=== PATIENT | male | born 1955 | race African-American/Black ===

== ENCOUNTER 2017-08-31 08:02 | Observation (INO) | payer OTHER ==
[2017-08-31 08:20] VITALS: BMI 37.3
--- NOTE | 2017-08-31 08:26 | PDOC ---
History of Present Illness - General Chief Complaint: Chest Pain Stated Complaint: CHEST PAIN Time Seen by Provider: 08/31/17 08:16 - History of Present Illness Initial Comments: 08/31/17 08:30 Mr. Jarvis is a 62 yo male with a significant past medical history of HTN, gout, and pre DM who presents to the emergency department complaining of chest pain and blood pressure to 180's/110's. He denies any other symptoms. The patient denies shortness of breath, headache and dizziness. Denies fever, chills, nausea, vomit, diarrhea and constipation. Denies dysuria, frequency, urgency and hematuria. Allergies: NKDA Past surgical history: Denies PMD - Roderick Denise Past History - Past Medical History Allergies/Adverse Reactions: Allergies Allergy/AdvReac Type Severity Reaction Status Date / Time No Known Allergies Allergy Verified 08/31/17 08:20 Home Medications: Ambulatory Orders Allopurinol [Zyloprim -] 100 mg PO DAILY #30 tablet 03/11/15 Chlorthalidone 25 mg PO DAILY #30 tablet 03/11/15 Losartan Potassium 100 mg PO DAILY #30 tablet 03/11/15 Metoprolol Tartrate 100 mg PO BID #30 tablet 03/11/15 Anemia: No Asthma: No Cancer: No Cardiac Disorders: No COPD: No CHF: No HTN: Yes Hypercholesterolemia: Yes - Immunization History Immunization Up to Date: Yes - Suicide/Smoking/Psychosocial Hx Smoking History: Current some day smoker Have you smoked in the past 12 months: No Number of Cigarettes Smoked Daily: 1 If you are a former smoker, when did you quit?: 5 MONTHS Cigars Per Day: 1 Hx Alcohol Use: No Drug/Substance Use Hx: No Substance Use Type: None Hx Substance Use Treatment: No Review of Systems - Review of Systems Comments:: 08/31/17 08:30 GENERAL/CONSTITUTIONAL: No fever or chills. No weakness. HEAD, EYES, EARS, NOSE AND THROAT: No change in vision. No ear pain or discharge. No sore throat. CARDIOVASCULAR: +Chest pain earlier this morning. No shortness of breath RESPIRATORY: No cough, wheezing, or hemoptysis. GASTROINTESTINAL: No nausea, vomiting, diarrhea or constipation. GENITOURINARY: No dysuria, frequency, or change in urination. MUSCULOSKELETAL: No joint or muscle swelling or pain. No neck or back pain. SKIN: No rash NEUROLOGIC: No headache, vertigo, loss of consciousness, or change in strength/ sensation. ENDOCRINE: No increased thirst. No abnormal weight change HEMATOLOGIC/LYMPHATIC: No anemia, easy bleeding, or history of blood clots. ALLERGIC/IMMUNOLOGIC: No hives or skin allergy. *Physical Exam - Physical Exam Comments: 08/31/17 08:30 GENERAL: Awake, alert, and fully oriented, in no acute distress HEAD: No signs of trauma, normocephalic, atraumatic EYES: PERRLA, EOMI, sclera anicteric, conjunctiva clear ENT: Auricles normal inspection, hearing grossly normal, nares patent, oropharynx clear without exudates. Moist mucosa NECK: Normal ROM, supple, no lymphadenopathy, JVD, or masses LUNGS: No distress, speaks full sentences, clear to auscultation bilaterally HEART: Regular rate and rhythm, normal S1 and S2, no murmurs, rubs or gallops, peripheral pulses normal and equal bilaterally. ABDOMEN: Soft, nontender, normoactive bowel sounds. No guarding, no rebound. No masses EXTREMITIES: Normal inspection, Normal range of motion, no edema. No clubbing or cyanosis. NEUROLOGICAL: Cranial nerves II through XII grossly intact. Normal speech, normal gait, no focal sensorimotor deficits SKIN: Warm, Dry, normal turgor, no rashes or lesions noted. ED Treatment Course - LABORATORY CBC & Chemistry Diagram: 08/31/17 08:25 08/31/17 16:10 *DC/Admit/Observation/Transfer Diagnosis at time of Disposition: Chest pain Qualifiers: Chest pain type: unspecified Qualified Code(s): R07.9 - Chest pain, unspecified ; R07.9 - Chest pain, unspecified - Discharge Dispostion Condition at time of disposition: Stable
[2017-08-31] MEDS ORDERED: ASPIRIN 325 MG TABLET PO ONE (08:37)
[2017-08-31] MEDS ORDERED: ASPIRIN 325 MG TABLET ONE (08:43)
[2017-08-31 08:51] LABS: EOSINOPHIL 1.7 % (0-4.5); MCH 25.6 pg (25.7-33.7); MCHC 32.8 g/dl (32.0-35.9); MEAN PLT VOLUME 7.7 fl (7.5-11.1); NEUTROPHILS 66.3 % (42.8-82.8); PLATELET COUNT 268 K/MM3 (134-434); RDW 14.6 % (11.9-15.9); WHITE BLOOD COUNT 9.5 K/mm3 (4.0-10.0)
[2017-08-31 09:03] LABS: ALBUMIN 3.9 g/dl (3.4-5.0); ANION GAP 6 (8-16); CALCIUM 8.8 mg/dL (8.5-10.1); CO2 33 mmol/L (21-32); GLUCOSE,RANDOM 126 mg/dL (74-106)
[2017-08-31 09:06] LABS: BILIRUBIN,TOTAL 0.7 mg/dL (0.2-1.0); CREATININE 1.4 mg/dL (0.7-1.3); SGOT/AST 28 U/L (15-37); SGPT/ALT 49 U/L (12-78); TOT PROT 7.5 g/dl (6.4-8.2)
[2017-08-31 09:09] LABS: ALK PHOS 76 U/L (45-117); CPK 292 IU/L (39-308); TROPONIN I < 0.02 ng/ml (0.00-0.05)
[2017-08-31] MEDS ORDERED: SODIUM CHLORIDE 1,000 ML IV STA (09:17)
[2017-08-31] MEDS ORDERED: POTASSIUM CHLORIDE TABS 20 MEQ TABLET.ER (FP) PO ONE ×3 (09:19→18:45)
--- NOTE | 2017-08-31 09:58 | PDOC ---
Attending Attestation - Resident Resident Name: SundaybretreySekouEyal - ED Attending Attestation I have performed the following: I have examined & evaluated the patient, The case was reviewed & discussed with the resident, I agree w/resident's findings & plan, Exceptions are as noted - Medical Decision Making 08/31/17 09:58 A portion of this note was written by my scribe, under my supervision. Vital Signs Temp Pulse Resp BP Pulse Ox 98.8 F 57 L 18 138/94 100 08/31/17 09:03 08/31/17 08:18 08/31/17 08:18 08/31/17 09:06 08/31/17 08:18 62-year-old male with history of hypertension presents to the emergency department chest pain since yesterday. According to the patient, patient reports atypical chest pain with gassy-like sensation yesterday that lasted several seconds and another left-sided episode that resolved earlier this morning. Denies short of breath, exertional component. Denies diaphoresis or vomiting. Does report some family history of cardiac disease with his father having an HI in his 80s. Given his age and history of hypertension, we'll rule out myocardial function. Patient is likely a good candidate for two troponins and for rapid outpatient echocardiogram and stress test. EKG is normal and initial troponin is negative. We'll need to touch base with the carpentry specialist comfortable with the plan. It carpentry specialist is okay with the plan, we'll have the patient discharged with rapid outpatient follow-up. <Mio Sutherland - Last Filed: 08/31/17 09:58> - HPI HPI: 08/31/17 10:08 62 yr old male, with significant past medical history of HTN, gout, who presents to the emergency room complaining of intermittent chest pain that started yesterday afternoon. The chest pain is tight, feels gassy, non radiating and lasts for about 30 seconds. The first episode of chest pain occurred yesterday afternoon, but subsided when he sat down and relaxed. He took metoprolol and losartan and went to sleep. The chest pain returned and was worse around 4am this morning. He does not have chest pain at this time. He also complains of constant left sided pain, that feels like air is trapped and is separate from the chest pain, which he has experienced for 2 years. Denies cough, SOB, palpitations. Denies fever, chills, nausea, vomiting. Allergies: NKDA No PCP. 08/31/17 11:15 - Physicial Exam PE: 08/31/17 10:18 GENERAL: Awake, alert, and fully oriented, in no acute distress HEAD: No signs of trauma EYES: PERRLA, EOMI, sclera anicteric, conjunctiva clear ENT: Auricles normal inspection, hearing grossly normal, nares patent, oropharynx clear without exudates. Moist mucosa NECK: Normal ROM, supple, no lymphadenopathy, JVD, or masses LUNGS: Breath sounds equal, clear to auscultation bilaterally. No wheezes, and no crackles HEART: Regular rate and rhythm, normal S1 and S2, no murmurs, rubs or gallops ABDOMEN: Soft, nontender, normoactive bowel sounds. No guarding, no rebound. No masses EXTREMITIES: Normal range of motion, no edema. No clubbing or cyanosis. No cords, erythema, or tenderness NEUROLOGICAL: Cranial nerves II through XII grossly intact. Normal speech, normal gait SKIN: Warm, Dry, normal turgor, no rashes or lesions noted. <Charisma Greene - Last Filed: 08/31/17 11:15> Heart Score/ECG Review - History History: Slightly suspicious - Electrocardiogram EKG: Normal - Age Age: 45-65 - Risk Factors Risk Factors Heart Score: Yes Hx Hypertension Based on the list above the patient has:: 1-2 risk factors - Troponin Troponin: </= normal limit - Score Heart Score - Total: 2 #1 ECG reviewed & interpreted by me at: 08:10 08/31/17 09:57 NSR 56 TWI III, no std/skyla, normal axis, normal intervals, QTC 426 msec <Mio Sutherland - Last Filed: 08/31/17 09:58>
[2017-08-31] MEDS ORDERED: RANITIDINE HCL 150 MG TABLET (FP) PO ONE ×2 (10:28→10:30)
[2017-08-31] MEDS ORDERED: RANITIDINE HCL 150 MG TABLET (FP) ONE (10:30)
--- NOTE | 2017-08-31 11:15 | EKG ---
Test Reason : Blood Pressure : / mmHG Vent. Rate : 056 BPM Atrial Rate : 056 BPM P-R Int : 178 ms QRS Dur : 086 ms QT Int : 442 ms P-R-T Axes : 060 007 016 degrees QTc Int : 426 ms SINUS BRADYCARDIA OTHERWISE NORMAL ECG WHEN COMPARED WITH ECG OF 09-MAR-2015 09:14, ST NO LONGER DEPRESSED IN INFERIOR LEADS T WAVE INVERSION NO LONGER EVIDENT IN LATERAL LEADS U WAVES IN SELECTED LEADS CLINICAL CORRELATION AND REPEAT INDICATED Confirmed by KAYY WEINSTEIN MD ([id number]) on 08/31/2017 11:15:34 AM Referred By: Confirmed By:KAYY WEINSTEIN MD
[2017-08-31] MEDS ORDERED: hydrALAZINE HCL 10 MG TABLET PO ONE ×2 (12:10→18:45)
[2017-08-31] MEDS ORDERED: hydrALAZINE HCL 25 MG TABLET (FP) ONE (12:17)
--- NOTE | 2017-08-31 12:25 | CON.CARD ---
Consult Consult Specialty:: cardiology Reason for Consultation:: chest pain; uncontrolled HTN - History of Present Illness Chief Complaint: Pt is presently asymptomatic. History of Present Illness: Mr. Jarvis is a 62 yo black male (. [place]), with a significant past medical history of HTN, DM, obesity, gout, bronchial asthma, (quit cigarettes in 2016, after smoking "a few cigarettes a day" since age 12), bilateral adrenal adenoma (2015 CT), fatty liver, who presents to the emergency department complaining of chest pain and blood pressure to 180's/110's. He denies any other symptoms. Pt stopped taking amlodipine a week ago, when he read it might cause chest pain. Pt has had left- sided chest pain radiating to left arm, occurring at rest , for years (reports admission to [facility] for these symptoms in 2014-->stress test) , but this is the first time he had central chest pain that occurred with exertion (walking), was tight and 8/10 in intensity, and lasted about 30 seconds ; it recurred today at 4 am. The patient denies shortness of breath, headache and dizziness. Denies fever, chills, nausea, vomit, diarrhea and constipation. Denies dysuria, frequency, urgency and hematuria. Allergies: NKDA Past surgical history: Denies Has an occasional alcoholic drink; never was a heavy drinker. Relatively sedentary lifestyle since retiring a year ago. PMD - Roderick Denise ([employer]). - History Source History Provided By: Patient, Family Member, Medical Record Limitations to Obtaining History: No Limitations - Past Medical History Cardio/Vascular: Yes: Aortic Insufficiency, HTN, Murmur (hx aortic regurgitation ). No: AFIB, Aneurysm, Aortic Stenosis, CAD, CHF, Deep Vein Thrombosis, Hyperlipdemia, [place], Mitral Insufficiency, Mitral Stenosis, Pulmonary Hypertension , Other Pulmonary: Yes: Asthma Endocrine: Yes: Diabetes Mellitus - Past Surgical History Past Surgical History: Yes: None - Alcohol/Substance Use Hx Alcohol Use: Yes History of Substance Use: reports: None - Smoking History Smoking history: Former smoker Have you smoked in the past 12 months: No Aproximately how many cigarettes per day: 1 If you are a former smoker, when did you quit?: 2016 - Social History Usual Living Arrangement: With Spouse Place of : Other ([place]) Home Medications - Allergies Allergies/Adverse Reactions: Allergies Allergy/AdvReac Type Severity Reaction Status Date / Time No Known Allergies Allergy Verified 08/31/17 08:20 - Home Medications Home Medications: Ambulatory Orders Allopurinol [Zyloprim -] 100 mg PO DAILY #30 tablet 03/11/15 Chlorthalidone 25 mg PO DAILY #30 tablet 03/11/15 Losartan Potassium 100 mg PO DAILY #30 tablet 03/11/15 Metoprolol Tartrate 100 mg PO BID #30 tablet 03/11/15 Family Disease History - Family Disease History Family History: Denies Review of Systems - Review of Systems Constitutional: reports: No Symptoms Eyes: reports: No Symptoms HENT: reports: No Symptoms Neck: reports: No Symptoms Cardiovascular: reports: Chest Pain Respiratory: reports: Wheezing (rare asthma attacks) Genitourinary: reports: No Symptoms Breasts: reports: No Symptoms Reported Musculoskeletal: reports: No Symptoms Integumentary: reports: No Symptoms Neurological: reports: No Symptoms Endocrine: reports: No Symptoms Hematology/Lymphatic: reports: No Symptoms Psychiatric: reports: No Symptoms - Risk Factors Known Risk Factors: Yes: Age, Diabetes Mellitus, Gender, Hypercholesterolemia, Hypertension, Physical Inactivity, Race, Smoking Vital Signs: Vital Signs Temperature 98.8 F 08/31/17 09:03 Pulse Rate 53 L 08/31/17 10:34 Respiratory Rate 18 08/31/17 10:34 Blood Pressure 152/100 08/31/17 10:34 O2 Sat by Pulse Oximetry (%) 100 08/31/17 10:34 Constitutional: Yes: Anxious (Pt says being in ER and speaking with doctors raises his BP) Eyes: Yes: WNL HENT: Yes: WNL Neck: Yes: WNL Respiratory: Yes: WNL Gastrointestinal: Yes: WNL, Abdomen, Obese Renal/: No: Anuria Cardiovascular: Yes: Bradycardia JVD: No Carotid Bruit: No PMI: Non-Displaced Heart Sounds: Yes: S1, S2, S4 Murmur: Yes: Systolic Murmur, Grade 2 Musculoskeletal: Yes: WNL Extremities: Yes: WNL Edema: No Peripheral Pulses WNL: Yes Integumentary: Yes: WNL Neurological: Yes: WNL Psychiatric: Yes: WNL - Other Data Labs, Other Data: CBC, BMP 08/31/17 08:25 08/31/17 08:25 Troponin, BNP 08/31/17 08:25 Troponin I < 0.02 Troponin, BNP 08/31/17 08:25 Troponin I < 0.02 Abnormal Lab Results 08/31/17 08/31/17 08/31/17 08:25 08:25 12:20 MCV 78.0 L MCH 25.6 L Potassium 3.1 L Carbon Dioxide 33 H Anion Gap 6 L Creatinine 1.4 H D Random Glucose 126 H D Triglycerides 191 H HDL Cholesterol 39 L 08/31/17 16:10 MCV MCH Potassium 3.4 L Carbon Dioxide 33 H Anion Gap 4 L Creatinine Random Glucose 119 H Triglycerides HDL Cholesterol Imaging - Results EKG: Image Reviewed (sinus bradycardia; nonspecific T wave changes) Problem List - Problems (1) Adrenal adenoma Assessment/Plan: bilateral small adrenal adenomas on CT 2014. ?[id number] HTN. Consider MRI to r/o secondary etiology of HTN. Code(s): D35.00 - BENIGN NEOPLASM OF UNSPECIFIED ADRENAL GLAND (2) Bronchial asthma Assessment/Plan: consider discontinuing beta blockers. F/u with retail clerk fot asthma; r/o sleep apnea. Code(s): J45.909 - UNSPECIFIED ASTHMA, UNCOMPLICATED (3) Has smoked cigarettes within prior year Assessment/Plan: pt says he quit entirely. Code(s): Z87.891 - PERSONAL HISTORY OF NICOTINE DEPENDENCE (4) Obesity Assessment/Plan: Pt plans to reduce weight "once I'm sure my heart is OK". F/lipids. Code(s): E66.9 - OBESITY, UNSPECIFIED (5) Diabetes Assessment/Plan: F/u fasting glucose and HGBA1C. Code(s): E11.9 - TYPE 2 DIABETES MELLITUS WITHOUT COMPLICATIONS (6) Hypokalemia Assessment/Plan: ? secondary to cholrtahlidone. Replete K+; f/u Mg2+ as well. Code(s): E87.6 - HYPOKALEMIA (7) Sedentary lifestyle Assessment/Plan: Pt intends to increase exercise after cardiac workup. Code(s): Z91.89 - OTH PERSONAL RISK FACTORS, NOT ELSEWHERE CLASSIFIED (8) Uncontrolled hypertension Assessment/Plan: metoprolol held (bradycardia; hx bronchial asthma). Pt self-d/syed amlodipine a week ago after reading that a side-effect might be chest pain. Continue chlorthalidone, unless continued hypokalemia despite repletion. Restart amlodipine. Continue losartan. Now on hydralazine. Code(s): I10 - ESSENTIAL (PRIMARY) HYPERTENSION (9) NSAID long-term use Assessment/Plan: Pt has been taking Advil "a lot, and for years"; his knees feel better when he takes it. The potential health risks were discussed, including possiblitity of CHF, [place], elevation in BP, renal. Code(s): Z79.1 - HALFWAY (CURRENT) USE OF NON-STEROIDAL NON-INFLAM (NSAID) (10) [place] cardiac risk >20% in next 10 years Assessment/Plan: TNI < 0.02; f/u serially. Pt had stress MIBI 2015: fair exercise capacity; no ischemia. Continued risk factors for CAD that remain poorly controlled. Stress MIBI when BP is stable. Code(s): Z91.89 - OTH PERSONAL RISK FACTORS, NOT ELSEWHERE CLASSIFIED (11) Sleep apnea Assessment/Plan: r/o OSAS; sleep studies, if not done before. Code(s): G47.30 - SLEEP APNEA, UNSPECIFIED (12) Bradycardia on ECG Assessment/Plan: Sinus bradycardia; nonspecific T wave changes. Metoprolol held. F/u TSH. Code(s): R00.1 - BRADYCARDIA, UNSPECIFIED
--- NOTE | 2017-08-31 12:57 | PDOC ---
*Physical Exam - Vital Signs Last Vital Signs Temp Pulse Resp BP Pulse Ox 98.8 F 53 L 18 152/100 100 08/31/17 09:03 08/31/17 10:34 08/31/17 10:34 08/31/17 10:34 08/31/17 10:34 ED Treatment Course - LABORATORY CBC & Chemistry Diagram: 08/31/17 08:25 08/31/17 08:25 - ADDITIONAL ORDERS Additional order review: Laboratory Results 08/31/17 08:25 Sodium 137 Potassium 3.1 L Chloride 98 Carbon Dioxide 33 H Anion Gap 6 L BUN 16 D Creatinine 1.4 H D Creat Clearance w eGFR 51.02 Random Glucose 126 H D Calcium 8.8 Total Bilirubin 0.7 AST 28 D ALT 49 D Alkaline Phosphatase 76 Creatine Kinase 292 Creatine Kinase Index 0.5 CK-MB (CK-2) 1.464 Troponin I < 0.02 Total Protein 7.5 Albumin 3.9 08/31/17 08:25 RBC 5.17 MCV 78.0 L MCHC 32.8 RDW 14.6 D MPV 7.7 Neutrophils % 66.3 Lymphocytes % 24.4 Monocytes % 6.6 Eosinophils % 1.7 Basophils % 1.0 - Medications Given in the ED: ED Medications Discontinued Medications Generic Name Dose Route Start Last Admin Trade Name Freq PRN Reason Stop Dose Admin Aspirin 325 mg 08/31/17 08:37 08/31/17 08:40 Asa - PO 08/31/17 08:38 325 mg ONCE ONE Administration Hydralazine HCl 10 mg 08/31/17 12:10 08/31/17 12:17 Apresoline - PO 08/31/17 12:11 10 mg ONCE ONE Administration Sodium Chloride 1,000 mls @ 1,000 mls/hr 08/31/17 09:17 08/31/17 09:32 Normal Saline - IV 08/31/17 10:16 1,000 mls/hr ASDIR STA Administration Potassium Chloride 40 meq 08/31/17 09:19 08/31/17 09:32 K-Dur - PO 08/31/17 09:20 40 meq ONCE ONE Administration Ranitidine HCl 300 mg 08/31/17 10:28 08/31/17 10:34 Zantac - PO 08/31/17 10:29 Not Given ONCE ONE Ranitidine HCl 150 mg 08/31/17 10:30 08/31/17 10:34 Zantac - PO 08/31/17 10:31 150 mg ONCE ONE Administration Medical Decision Making - Medical Decision Making 08/31/17 12:[address] Hansen. Case discussed with Dr. Adams Accepted to tele observation *DC/Admit/Observation/Transfer Diagnosis at time of Disposition: Chest pain Qualifiers: Chest pain type: unspecified Qualified Code(s): R07.9 - Chest pain, unspecified ; R07.9 - Chest pain, unspecified - Discharge Dispostion Condition at time of disposition: Stable Admit: Yes
[2017-08-31 12:59] LABS: CPK 287 IU/L (39-308)
[2017-08-31 13:00] LABS: TROPONIN I < 0.02 ng/ml (0.00-0.05)
[2017-08-31 13:09] LABS: CHOLESTEROL 165 mg/dL (50-200); MAGNESIUM 1.9 mg/dL (1.8-2.4)
[2017-08-31 13:32] LABS: THYROID STIMULATING HORMONE 0.69 uIU/ml (0.358-3.74)
--- NOTE | 2017-08-31 14:17 | HP ---
Admitting History and Physical - Admission Chief Complaint: chest discomfort History of Present Illness: Mr. Jarvis is a 62 yo male with a significant past medical history of HTN, gout, bronchial asthma( prior smoker ) and pre DM who presents to the emergency department complaining of chest pain and blood pressure to 180's/110's. He denies any other symptoms. The patient denies shortness of breath, headache and dizziness. Denies fever, chills, nausea, vomit, diarrhea and constipation. Denies dysuria, frequency, urgency and hematuria. per patient yesterday when he got back from work he was having this heavy chest discomfort like : air pocket: in left side of chest then he took hay aspirin and pain subsided then he was ok for rest of evening. in the nite around 3:00pm he got up because of same discomfort in chest and left arm cramping feeling he check BP and it was 180's he took his meds and decided to come to ER. in ER BP 161/101 and K 3.1 got hydralazine and potasium as well seen by cardio wants to do stress test in morning currently patient is pain free and siting comfortably History Source: Patient, Medical Record - Past Medical History Cardiovascular: Yes: HTN. No: AFIB, Aneurysm, Aortic Insufficiency, Aortic Stenosis, CAD, CHF, Deep Vein Thrombosis, Hyperlipdemia, [place], Mitral Insufficiency, Mitral Stenosis, Murmur, Pulmonary Hypertension, Other Pulmonary: Yes: Asthma Endocrine: Yes: Diabetes Mellitus - Smoking History Smoking history: Former smoker Have you smoked in the past 12 months: No Aproximately how many cigarettes per day: 1 If you are a former smoker, when did you quit?: 2016 - Alcohol/Substance Use Hx Alcohol Use: Yes Home Medications - Allergies Allergies/Adverse Reactions: Allergies Allergy/AdvReac Type Severity Reaction Status Date / Time No Known Allergies Allergy Verified 08/31/17 08:20 - Home Medications Home Medications: Ambulatory Orders Allopurinol [Zyloprim -] 100 mg PO DAILY #30 tablet 03/11/15 Chlorthalidone 25 mg PO DAILY #30 tablet 03/11/15 Losartan Potassium 100 mg PO DAILY #30 tablet 03/11/15 Metoprolol Tartrate 100 mg PO BID #30 tablet 03/11/15 Review of Systems - Review of Systems Cardiovascular: reports: No Symptoms Respiratory: reports: No Symptoms Gastrointestinal: reports: No Symptoms Physical Examination Vital Signs: Vital Signs Temperature 98.8 F 08/31/17 09:03 Pulse Rate 60 08/31/17 13:16 Respiratory Rate 18 08/31/17 13:16 Blood Pressure 153/100 08/31/17 13:16 O2 Sat by Pulse Oximetry (%) 100 08/31/17 13:16 Constitutional: Yes: Calm Neck: Yes: Trachea Midline Cardiovascular: Yes: Regular Rate and Rhythm, S1, S2 Respiratory: Yes: CTA Bilaterally Gastrointestinal: Yes: Normal Bowel Sounds, Soft, Abdomen, Obese Edema: No Neurological: Yes: Alert, Oriented Imaging - Results EKG: Report Reviewed (sinus bradycardia) Problem List - Problems (1) Chest pain Assessment/Plan: tele cardio on board echo check [id number] Code(s): R07.9 - CHEST PAIN, UNSPECIFIED (2) Bradycardia on ECG Assessment/Plan: hold BB Code(s): R00.1 - BRADYCARDIA, UNSPECIFIED (3) Hypokalemia Assessment/Plan: repleted will repeat again later Code(s): E87.6 - HYPOKALEMIA (4) Uncontrolled hypertension Assessment/Plan: hydralazine,norvasc losartan hydralaizne will hold chlorthalidone given inc in Creatinine to 1.4 and hypokalemia Code(s): I10 - ESSENTIAL (PRIMARY) HYPERTENSION (5) Gout Assessment/Plan: check uric acid alopurinol 100mg Code(s): M10.9 - GOUT, UNSPECIFIED
[2017-08-31] MEDS: LOSARTAN POTASSIUM 50 MG TABLET (FP) PO SCH (15:24)
[2017-08-31] MEDS: amLODIPine BESYLATE 10 MG TABLET (FP) PO SCH (15:24)
[2017-08-31 17:11] LABS: ALBUMIN 3.7 g/dl (3.4-5.0); ANION GAP 4 (8-16); CALCIUM 8.7 mg/dL (8.5-10.1); CO2 33 mmol/L (21-32); GLUCOSE,RANDOM 119 mg/dL (74-106)
[2017-08-31 17:16] LABS: ALK PHOS 76 U/L (45-117); BILIRUBIN,TOTAL 0.7 mg/dL (0.2-1.0); CREATININE 1.3 mg/dL (0.7-1.3); SGOT/AST 25 U/L (15-37); SGPT/ALT 45 U/L (12-78); TOT PROT 7.3 g/dl (6.4-8.2)
[2017-08-31] MEDS: OMEGA-3 ACID ETHYL ESTERS (FATTY-ACIDS) 1 GM CAPSULE (FP) PO SCH (21:17)
[2017-08-31] MEDS: hydrALAZINE HCL 10 MG TABLET PO SCH (21:17)
[2017-08-31] MEDS ORDERED: ATORVASTATIN CA 10 MG TABLET (FP) PO SCH (22:00)
[2017-09-01] MEDS: hydrALAZINE HCL 10 MG TABLET PO SCH (05:38)
[2017-09-01 07:22] LABS: BASOPHIL 0.6 % (0-2.0); EOSINOPHIL 2.2 % (0-4.5); MCH 25.5 pg (25.7-33.7); MEAN CELL VOLUME 77.3 fl (80-96); MEAN PLT VOLUME 7.9 fl (7.5-11.1); NEUTROPHILS 51.9 % (42.8-82.8); PLATELET COUNT 260 K/MM3 (134-434); RDW 14.4 % (11.9-15.9); WHITE BLOOD COUNT 9.6 K/mm3 (4.0-10.0)
[2017-09-01 07:33] LABS: INR 1.1 (0.82-1.09); PROTHROMBIN TIME (PATIENT) 12.1 SEC (9.98-11.88)
[2017-09-01 07:36] LABS: ACTIVATED PTT 47.4 SECONDS (26.9-34.4)
[2017-09-01 07:50] LABS: CHOLESTEROL 165 mg/dL (50-200); URIC ACID 7.8 mg/dL (2.6-7.2)
[2017-09-01 07:53] LABS: CPK 254 IU/L (39-308); TROPONIN I < 0.02 ng/ml (0.00-0.05)
[2017-09-01 08:07] LABS: ALBUMIN 3.6 g/dl (3.4-5.0); ANION GAP 7 (8-16); CALCIUM 8.7 mg/dL (8.5-10.1); CO2 31 mmol/L (21-32); GLUCOSE,RANDOM 101 mg/dL (74-106); MAGNESIUM 2.1 mg/dL (1.8-2.4)
[2017-09-01 08:13] LABS: ALK PHOS 72 U/L (45-117); BILIRUBIN,TOTAL 0.8 mg/dL (0.2-1.0); CREATININE 1.2 mg/dL (0.7-1.3); PHOSPHOROUS 3.2 mg/dL (2.5-4.9); SGOT/AST 26 U/L (15-37); SGPT/ALT 46 U/L (12-78); TOT PROT 7.1 g/dl (6.4-8.2)
[2017-09-01] MEDS: LOSARTAN POTASSIUM 50 MG TABLET (FP) PO SCH ×2 (08:19→10:48)
[2017-09-01] MEDS: amLODIPine BESYLATE 10 MG TABLET (FP) PO SCH ×2 (08:19→10:48)
--- NOTE | 2017-09-01 08:22 | PN ---
Progress Note, Physician - Current Medication List Current Medications: Active Medications Amlodipine Besylate (Norvasc -) 10 mg PO DAILY [facility] Last Admin: 09/01/17 08:19 Dose: 10 mg Atorvastatin Calcium (Lipitor -) 10 mg PO HS [facility] Last Admin: 08/31/17 21:17 Dose: 10 mg Hydralazine HCl (Apresoline -) 10 mg PO TID [facility] Last Admin: 09/01/17 05:38 Dose: 10 mg Losartan Potassium (Cozaar -) 100 mg PO DAILY [facility] Last Admin: 09/01/17 08:19 Dose: 100 mg Beclo-5-[id number] Ethyl Esters (Lovaza -) 2 gm PO BID [facility] Last Admin: 08/31/17 21:17 Dose: 2 gm - Objective Vital Signs: Vital Signs Temperature 98 F 09/01/17 08:00 Pulse Rate 77 09/01/17 08:00 Respiratory Rate 20 09/01/17 08:00 Blood Pressure 148/113 09/01/17 08:00 O2 Sat by Pulse Oximetry (%) 98 08/31/17 22:30 Labs: CBC, BMP 09/01/17 05:10 09/01/17 05:10 INR, PTT INR 1.10 (0.82-1.09) 09/01/17 05:10
[2017-09-01] MEDS ORDERED: CHLORTHALIDONE 25 MG TABLET PO SCH (10:00)
[2017-09-01] MEDS ORDERED: DIPYRIDAMOLE STRESS TEST 50 MG in DEXTROSE 5%-WATER - 40 ML IVPB ONE (10:00)
[2017-09-01] MEDS ORDERED: hydrALAZINE HCL 25 MG TABLET (FP) PO SCH (10:00)
--- NOTE | 2017-09-01 10:19 | PN ---
Progress Note, Physician History of Present Illness: Mr. Jarvis is a 62 yo black male ([facility]), with a significant past medical history of HTN, DM, obesity, gout, bronchial asthma, (quit cigarettes in 2016, after smoking "a few cigarettes a day" since age 12), bilateral adrenal adenoma (2015 CT), fatty liver, who presents to the emergency department complaining of chest pain and blood pressure to 180's/110's. He denies any other symptoms. Pt stopped taking amlodipine a week ago, when he read it might cause chest pain. Pt has had left- sided chest pain radiating to left arm, occurring at rest , for years (reports admission to [facility] for these symptoms in 2014-->stress test) , but this is the first time he had central chest pain that occurred with exertion (walking), was tight and 8/10 in intensity, and lasted about 30 seconds ; it recurred today at 4 am. The patient denies shortness of breath, headache and dizziness. Denies fever, chills, nausea, vomit, diarrhea and constipation. Denies dysuria, frequency, urgency and hematuria. Allergies: NKDA Past surgical history: Denies Has an occasional alcoholic drink; never was a heavy drinker. Relatively sedentary lifestyle since retiring a year ago. PMD - Roderick Denise ([employer]). - Current Medication List Current Medications: Active Medications Amlodipine Besylate (Norvasc -) 10 mg PO DAILY [facility] Last Admin: 09/01/17 08:19 Dose: 10 mg Atorvastatin Calcium (Lipitor -) 10 mg PO HS [facility] Last Admin: 08/31/17 21:17 Dose: 10 mg Chlorthalidone (Hygroton -) 25 mg PO DAILY [facility] Hydralazine HCl (Apresoline -) 25 mg PO BID [facility] Losartan Potassium (Cozaar -) 100 mg PO DAILY [facility] Last Admin: 09/01/17 08:19 Dose: 100 mg Imhvh-2-Enhu Ethyl Esters (Lovaza -) 2 gm PO BID [facility] Last Admin: 08/31/17 21:17 Dose: 2 gm - Objective Vital Signs: Vital Signs Temperature 98 F 09/01/17 08:00 Pulse Rate 77 09/01/17 08:00 Respiratory Rate 20 09/01/17 08:00 Blood Pressure 148/113 09/01/17 08:00 O2 Sat by Pulse Oximetry (%) 99 09/01/17 08:00 Eyes: Yes: WNL, Conjunctiva Clear, EOM Intact HENT: Yes: WNL, Atraumatic, Normocephalic Neck: Yes: WNL, Supple, Trachea Midline Cardiovascular: Yes: WNL, Regular Rate and Rhythm Respiratory: Yes: WNL, Regular, CTA Bilaterally Gastrointestinal: Yes: WNL, Normal Bowel Sounds Genitourinary: Yes: WNL Musculoskeletal: Yes: WNL Extremities: Yes: WNL Edema: No Integumentary: Yes: WNL Neurological: Yes: WNL, Alert, Oriented ...Motor Strength: WNL Psychiatric: Yes: WNL Labs: CBC, BMP 09/01/17 05:10 09/01/17 05:10 INR, PTT INR 1.10 (0.82-1.09) 09/01/17 05:10 Assessment/Plan - Problems (1) Adrenal adenoma Assessment/Plan: bilateral small adrenal adenomas on CT 2014. ?[id number] HTN. Consider MRI to r/o secondary etiology of HTN. Code(s): D35.00 - BENIGN NEOPLASM OF UNSPECIFIED ADRENAL GLAND (2) Bronchial asthma Assessment/Plan: consider discontinuing beta blockers. F/u with candy roller fot asthma; r/o sleep apnea. Code(s): J45.909 - UNSPECIFIED ASTHMA, UNCOMPLICATED (3) Has smoked cigarettes within prior year Assessment/Plan: pt says he quit entirely. Code(s): Z87.891 - PERSONAL HISTORY OF NICOTINE DEPENDENCE (4) Obesity Assessment/Plan: Pt plans to reduce weight "once I'm sure my heart is OK". F/lipids. Code(s): E66.9 - OBESITY, UNSPECIFIED (5) Diabetes Assessment/Plan: F/u fasting glucose and HGBA1C. Code(s): E11.9 - TYPE 2 DIABETES MELLITUS WITHOUT COMPLICATIONS (6) Hypokalemia Assessment/Plan: ? secondary to cholrtahlidone. Replete K+; f/u Mg2+ as well. Code(s): E87.6 - HYPOKALEMIA (7) Sedentary lifestyle Assessment/Plan: Pt intends to increase exercise after cardiac workup. Code(s): Z91.89 - OT PERSONAL RISK FACTORS, NOT ELSEWHERE CLASSIFIED (8) Uncontrolled hypertension Assessment/Plan: metoprolol held (bradycardia; hx bronchial asthma). Pt self-d/syed amlodipine a week ago after reading that a side-effect might be chest pain. Continue chlorthalidone, unless continued hypokalemia despite repletion. Restart amlodipine. Continue losartan. Now on hydralazine. Code(s): I10 - ESSENTIAL (PRIMARY) HYPERTENSION (9) NSAID long-term use Assessment/Plan: Pt has been taking Advil "a lot, and for years"; his knees feel better when he takes it. The potential health risks were discussed, including possiblitity of CHF, MS, elevation in BP, renal. Code(s): Z79.1 - DATA SCIENCE AND IOT MANAGER (CURRENT) USE OF NON-STEROIDAL NON-INFLAM (NSAID) (10) [place] cardiac risk >20% in next 10 years Assessment/Plan: TNI < 0.02; f/u serially. Pt had stress MIBI 2015: fair exercise capacity; no ischemia. Continued risk factors for CAD that remain poorly controlled. Stress MIBI when BP is stable. Code(s): Z91.89 - OTH PERSONAL RISK FACTORS, NOT ELSEWHERE CLASSIFIED (11) Sleep apnea Assessment/Plan: r/o OSAS; sleep studies, if not done before. Code(s): G47.30 - SLEEP APNEA, UNSPECIFIED (12) Bradycardia on ECG Assessment/Plan: Sinus bradycardia; nonspecific T wave changes. Metoprolol held. F/u TSH. Code(s): R00.1 - BRADYCARDIA, UNSPECIFIED
[2017-09-01] MEDS: OMEGA-3 ACID ETHYL ESTERS (FATTY-ACIDS) 1 GM CAPSULE (FP) PO SCH (14:50)
[2017-09-01] MEDS ORDERED: ALPRAZolam 2 MG TABLET PO ONE (16:00)
[2017-09-01 20:25] VITALS: BP 150/86; PULSE 92; TEMP 98.4
--- NOTE | 2017-09-02 14:16 | EKG ---
Test Reason : Blood Pressure : / mmHG Vent. Rate : 086 BPM Atrial Rate : 086 BPM P-R Int : 170 ms QRS Dur : 076 ms QT Int : 370 ms P-R-T Axes : 056 006 019 degrees QTc Int : 442 ms SINUS RHYTHM WITH PREMATURE ATRIAL COMPLEXES NONSPECIFIC T WAVE ABNORMALITY ABNORMAL ECG WHEN COMPARED WITH ECG OF 31-AUG-2017 08:06, PREMATURE ATRIAL COMPLEXES ARE NOW PRESENT VENT. RATE HAS INCREASED BY 30 BPM Confirmed by GARRISON NORIEGA MD ([id number]) on 09/02/2017 2:15:47 PM Referred By: [facility] Confirmed By:GARRISON NORIEGA MD
== END 2017-09-01 20:50 | disposition short-term general hospital (02) ==
LOC: JER 08:02 → JERBED 12:57 → J4W 14:18
PROVIDERS: ADMIT Family Medicine; ATTEND Family Medicine
PROC: 3E033GC Introduction of Other Therapeutic Substance into Peripheral Vein, Percutaneous Approach (ICD-10-PCS; principal; 2017-08-31)
PROC: 3E0337Z Introduction of Electrolytic and Water Balance Substance into Peripheral Vein, Percutaneous Approach (ICD-10-PCS; 2017-08-31)
DX: R07.9 Chest pain, unspecified (principal); D35.00 Benign neoplasm of unspecified adrenal gland; J45.909 Unspecified asthma, uncomplicated; Z87.891 Personal history of nicotine dependence; E66.9 Obesity, unspecified; Z68.38 Body mass index [BMI] 38.0-38.9, adult; E11.9 Type 2 diabetes mellitus without complications; E87.6 Hypokalemia; Z91.89 Other specified personal risk factors, not elsewhere classified; I10 Essential (primary) hypertension; Z79.1 Long term (current) use of non-steroidal anti-inflammatories (NSAID); G47.30 Sleep apnea, unspecified; R00.1 Bradycardia, unspecified; M10.9 Gout, unspecified; E78.00 Pure hypercholesterolemia, unspecified
CPT/HCPCS: 36415; 71020-TC; 74181-TC; 78452-TC; 80053; 80061; 82553; 83036; 83721; 83735; 83880; 84100; 84443; 84484; 84550; 85025; 85610; 85730; 93005; 93010; 93017; 93306-TC; 96361; 96374; 99285-25; A9502; G0378

== ENCOUNTER 2018-02-28 11:23 | Observation (INO) | payer OTHER ==
[2018-02-28 11:29] VITALS: BMI 36.6
--- NOTE | 2018-02-28 11:32 | PDOC ---
History of Present Illness - General History Source: Patient Exam Limitations: No Limitations - History of Present Illness Initial Comments: 02/28/18 12:11 The patient is a 63 year old male with a significant PMH of gout, HTN, sleep apnea, and diabetes who presents to the emergency department with lightheadedness and chest pressure since 2AM this morning. The patient describes the chest pressure as a 'pinching needle sensation' localized on the left side of the chest, non-radiating, with a 2/10 in severity. The patient states he took nitro after the onset of these symptoms. The patient has an extensive cardiac history and was told by field mechanic/site lead that he has a blockage that could not be stented after cath in September. The patients BP is 150/97 in the ER. The patient denies shortness of breath, and headache. Denies fever, chills, nausea, vomit, diarrhea and constipation. Denies dysuria, frequency, urgency and hematuria. Allergies: NKA Past surgical history: s/p 2 stents placed. Social history: Quit smoking 1 year ago. No reported drug or alcohol use. Supervisor Sample: Dr. Browning [phone] <Judith Wise - Last Filed: 02/28/18 15:32> <Elizabeth Chase - Last Filed: 02/28/18 15:40> - General Chief Complaint: Chest Pain Stated Complaint: CHEST PAIN Time Seen by Provider: 02/28/18 11:32 Past History <Judith Wise - Last Filed: 02/28/18 15:32> - Past Medical History Anemia: No Asthma: No Cancer: No Cardiac Disorders: Yes (2 stents) COPD: No CHF: No HTN: Yes Hypercholesterolemia: Yes - Immunization History Immunization Up to Date: Yes - Suicide/Smoking/Psychosocial Hx Smoking History: Former smoker Have you smoked in the past 12 months: No Number of Cigarettes Smoked Daily: 1 If you are a former smoker, when did you quit?: 2016 Cigars Per Day: 1 Information on smoking cessation initiated: No Hx Alcohol Use: No Drug/Substance Use Hx: No Substance Use Type: None Hx Substance Use Treatment: No <Elizabeth Chase - Last Filed: 02/28/18 15:40> - Past Medical History Allergies/Adverse Reactions: Allergies Allergy/AdvReac Type Severity Reaction Status Date / Time No Known Allergies Allergy Verified 02/28/18 11:26 Home Medications: Ambulatory Orders Allopurinol [Zyloprim -] 100 mg PO DAILY #30 tablet 03/11/15 Chlorthalidone 25 mg PO DAILY #30 tablet 03/11/15 Losartan Potassium 100 mg PO DAILY #30 tablet 03/11/15 Metoprolol Tartrate 100 mg PO BID #30 tablet 03/11/15 Aspirin 81 mg PO DAILY 02/28/18 Atorvastatin Ca [Lipitor] 80 mg PO HS 02/28/18 Clopidogrel Bisulfate [Plavix] 75 mg PO DAILY 02/28/18 Nitroglycerin Sublingual [Nitrostat -] 0.4 mg SL PRN PRN 02/28/18 Review of Systems - Review of Systems Able to Perform ROS?: Yes Comments:: 02/28/18 12:13 GENERAL/CONSTITUTIONAL: No fever or chills. No weakness. HEAD, EYES, EARS, NOSE AND THROAT: No change in vision. No ear pain or discharge. No sore throat. CARDIOVASCULAR: (+) Chest pressure. No shortness of breath. RESPIRATORY: No cough, wheezing, or hemoptysis. GASTROINTESTINAL: No nausea, vomiting, diarrhea or constipation. GENITOURINARY: No dysuria, frequency, or change in urination. MUSCULOSKELETAL: No joint or muscle swelling or pain. No neck or back pain. SKIN: No rash NEUROLOGIC:(+) Lightheadedness. No headache, loss of consciousness, or change in strength/sensation. ENDOCRINE: No increased thirst. No abnormal weight change. HEMATOLOGIC/LYMPHATIC: No anemia, easy bleeding, or history of blood clots. ALLERGIC/IMMUNOLOGIC: No hives or skin allergy. <Judith Wise - Last Filed: 02/28/18 15:32> *Physical Exam - Vital Signs Last Vital Signs Temp Pulse Resp BP Pulse Ox 98.2 F 60 18 150/97 99 02/28/18 11:26 02/28/18 11:26 02/28/18 11:26 02/28/18 11:26 02/28/18 11:26 - Physical Exam Comments: 02/28/18 12:14 ADULT EXAM GENERAL: Awake, alert, and fully oriented, in no acute distress HEAD: No signs of trauma EYES: PERRLA, EOMI, sclera anicteric, conjunctiva clear ENT: Auricles normal inspection, hearing grossly normal, nares patent, oropharynx clear without exudates. Moist mucosa NECK: Normal ROM, supple, no lymphadenopathy, JVD, or masses LUNGS: Breath sounds equal, clear to auscultation bilaterally. No wheezes, and no crackles HEART: Regular rate and rhythm, normal S1 and S2, no murmurs, rubs or gallops ABDOMEN: Soft, nontender, normoactive bowel sounds. No guarding, no rebound. No masses EXTREMITIES: Normal range of motion, no edema. No clubbing or cyanosis. No cords , erythema, or tenderness NEUROLOGICAL: Cranial nerves II through XII grossly intact. Normal speech. SKIN: Warm, Dry, normal turgor, no rashes or lesions noted. <Judith Wise - Last Filed: 02/28/18 15:32> - Vital Signs Last Vital Signs Temp Pulse Resp BP Pulse Ox 98.2 F 60 18 150/97 99 02/28/18 11:26 02/28/18 11:26 02/28/18 11:26 02/28/18 11:26 02/28/18 11:26 <Elizabeth Chase - Last Filed: 02/28/18 15:40> ED Treatment Course - LABORATORY CBC & Chemistry Diagram: 02/28/18 13:06 02/28/18 13:45 <Judith Wise - Last Filed: 02/28/18 15:32> - LABORATORY CBC & Chemistry Diagram: 02/28/18 13:06 02/28/18 13:45 <Elizabeth Chase - Last Filed: 02/28/18 15:40> Medical Decision Making - Medical Decision Making 02/28/18 12:54 Pt presents to the ED complaining of chest pain and lightheadness that began yesterday at 2 am. Patient has extensive cardiac history and was told by his field mechanic/site lead that he had a blockage that was not stented after cath in September. Differential includes ACS, less likley CHF, muscular chest pain. EKG shows no evidence of acute ischemia. Will check labs and consult with patient's field mechanic/site lead, likely admit for observation. <Elizabeth Chase - Last Filed: 02/28/18 15:40> *DC/Admit/Observation/Transfer - Attestations Scribe Attestion: 02/28/18 12:14 Documentation prepared by Judith Wise, acting as medical physicist for Elizabeth Chase MD. <Judith Wise - Last Filed: 02/28/18 15:32> - Discharge Dispostion Admit: Yes <Elizabeth Chase - Last Filed: 02/28/18 15:40> Diagnosis at time of Disposition: Chest pain Qualifiers: Chest pain type: unspecified Qualified Code(s): R07.9 - Chest pain, unspecified - Discharge Dispostion Condition at time of disposition: Good
[2018-02-28] MEDS ORDERED: ASPIRIN 81 MG CHEWABLE TABLETS PO ONE (12:47)
[2018-02-28] MEDS ORDERED: ASPIRIN 81 MG CHEWABLE TABLETS ONE (13:09)
[2018-02-28 13:49] LABS: BASO % 0.6 % (0-2.0); EOS % 1.7 % (0-4.5); HEMATOCRIT 37.6 % (35.4-49); HEMOGLOBIN 12.3 GM/dL (11.7-16.9); LYMPH % 25.3 % (8-40); MCH 25.1 pg (25.7-33.7); MCHC 32.8 g/dl (32.0-35.9); MEAN CELL VOLUME 76.6 fl (80-96); MEAN PLT VOLUME 7.8 fl (7.5-11.1); MONO % 7.7 % (3.8-10.2); NEUT % 64.7 % (42.8-82.8); PLATELET COUNT 279 K/MM3 (134-434); RBC 4.91 M/mm3 (4.00-5.60)
[2018-02-28 14:11] LABS: ANION GAP 12 (8-16); BILIRUBIN,TOTAL 0.7 mg/dL (0.2-1.0); BLOOD UREA NITROGEN 18 mg/dL (7-18); CALCIUM 8.9 mg/dL (8.5-10.1); CHLORIDE 100 mmol/L (98-107); CO2 29 mmol/L (21-32); CREATININE 1.3 mg/dL (0.7-1.3); GLUCOSE,RANDOM 98 mg/dL (74-106); SGOT/AST 30 U/L (15-37); SGPT/ALT 41 U/L (12-78); SODIUM 141 mmol/L (136-145); TOT PROT 7.7 g/dl (6.4-8.2)
[2018-02-28 14:13] LABS: ALK PHOS 94 U/L (45-117)
--- NOTE | 2018-02-28 17:14 | CON.CARD ---
Consult Consult Specialty:: Cardiology Reason for Consultation:: cp - History of Present Illness History of Present Illness: The patient is a 63 year old male with a significant PMH of gout, HTN, sleep apnea, and diabetes who presents to the emergency department with lightheadedness and chest pressure since 2AM this morning. The patient describes the chest pressure as a 'pinching needle sensation' localized on the left side of the chest, non-radiating, with a 2/10 in severity. The patient states he took nitro after the onset of these symptoms. The patient has an extensive cardiac history and was told by folded cloth taper that he has a blockage that could not be stented after cath in September. The patients BP is 150/97 in the ER. The patient denies shortness of breath, and headache. Denies fever, chills, nausea, vomit, diarrhea and constipation. Denies dysuria, frequency, urgency and hematuria. Allergies: NKA Past surgical history: s/p 2 stents placed. Social history: Quit smoking 1 year ago. No reported drug or alcohol use. Tabulating Supervisor: Dr. Browning [phone] PMH CAD s/p PCI LAD HTN DM2 not on meds Obesity Hyperlipidemia Adrenal adenoma Unstable angina 08/2017 NST positive ischemia lateral - History Source History Provided By: Patient, Medical Record - Past Medical History Cardio/Vascular: Yes: Aortic Insufficiency, HTN, Murmur (hx aortic regurgitation ). No: AFIB, Aneurysm, Aortic Stenosis, CAD, CHF, Deep Vein Thrombosis, Hyperlipdemia, [place], Mitral Insufficiency, Mitral Stenosis, Pulmonary Hypertension , Other Pulmonary: Yes: Asthma Endocrine: Yes: Diabetes Mellitus - Past Surgical History Past Surgical History: Yes: None - Alcohol/Substance Use Hx Alcohol Use: No History of Substance Use: reports: None - Smoking History Smoking history: Former smoker Have you smoked in the past 12 months: No Aproximately how many cigarettes per day: 1 If you are a former smoker, when did you quit?: 2016 - Social History Usual Living Arrangement: With Spouse Home Medications - Allergies Allergies/Adverse Reactions: Allergies Allergy/AdvReac Type Severity Reaction Status Date / Time No Known Allergies Allergy Verified 02/28/18 11:26 - Home Medications Home Medications: Ambulatory Orders Allopurinol [Zyloprim -] 100 mg PO DAILY #30 tablet 03/11/15 Chlorthalidone 25 mg PO DAILY #30 tablet 03/11/15 Losartan Potassium 100 mg PO DAILY #30 tablet 03/11/15 Metoprolol Tartrate 100 mg PO BID #30 tablet 03/11/15 Aspirin 81 mg PO DAILY 02/28/18 Atorvastatin Ca [Lipitor] 80 mg PO HS 02/28/18 Clopidogrel Bisulfate [Plavix] 75 mg PO DAILY 02/28/18 Nitroglycerin Sublingual [Nitrostat -] 0.4 mg SL PRN PRN 02/28/18 Review of Systems - Review of Systems Constitutional: reports: No Symptoms Eyes: reports: No Symptoms HENT: reports: No Symptoms Neck: reports: No Symptoms Cardiovascular: reports: Chest Pain Gastrointestinal: reports: No Symptoms Genitourinary: reports: No Symptoms Breasts: reports: No Symptoms Reported Musculoskeletal: reports: No Symptoms Integumentary: reports: No Symptoms Neurological: reports: No Symptoms Endocrine: reports: No Symptoms Hematology/Lymphatic: reports: No Symptoms Psychiatric: reports: No Symptoms Vital Signs: Vital Signs Temperature 97.8 F 02/28/18 17:10 Pulse Rate 63 02/28/18 17:10 Respiratory Rate 18 02/28/18 17:10 Blood Pressure 138/80 02/28/18 17:10 O2 Sat by Pulse Oximetry (%) 100 02/28/18 17:10 Constitutional: Yes: Well Nourished, No Distress, Calm Eyes: Yes: WNL, Conjunctiva Clear, EOM Intact HENT: Yes: WNL, Atraumatic, Normocephalic Neck: Yes: WNL, Supple, Trachea Midline Respiratory: Yes: WNL, Regular, CTA Bilaterally Gastrointestinal: Yes: WNL, Normal Bowel Sounds Renal/: Yes: WNL Cardiovascular: Yes: WNL, Regular Rate and Rhythm Musculoskeletal: Yes: WNL Extremities: Yes: WNL Integumentary: Yes: WNL Neurological: Yes: WNL, Alert, Oriented ...Motor Strength: WNL Psychiatric: Yes: WNL, Alert, Oriented - Other Data Labs, Other Data: CBC, BMP 02/28/18 13:06 02/28/18 13:45 Troponin, BNP 02/28/18 13:45 Troponin I < 0.02 Troponin, BNP 02/28/18 13:45 Troponin I < 0.02 Laboratory Tests 02/28/18 02/28/18 13:06 13:45 WBC 9.0 RBC 4.91 Hgb 12.3 Hct 37.6 MCV 76.6 L MCH 25.1 L MCHC 32.8 RDW 15.0 Plt Count 279 MPV 7.8 Neutrophils % 64.7 D Lymphocytes % 25.3 D Monocytes % 7.7 Eosinophils % 1.7 Basophils % 0.6 Sodium 141 Potassium 3.0 L Chloride 100 Carbon Dioxide 29 Anion Gap 12 BUN 18 Creatinine 1.3 Creat Clearance w eGFR 55.40 Random Glucose 98 Calcium 8.9 Total Bilirubin 0.7 AST 30 ALT 41 Alkaline Phosphatase 94 D Creatine Kinase 281 Creatine Kinase Index 0.4 CK-MB (CK-2) 1.180 Troponin I < 0.02 Total Protein 7.7 Albumin 4.0 Imaging - Results Chest X-ray: Pending EKG: Image Reviewed (sr rep abn) Problem List - Problems (1) Chest pain Code(s): R07.9 - CHEST PAIN, UNSPECIFIED Qualifiers: Chest pain type: unspecified Qualified Code(s): R07.9 - Chest pain, unspecified (2) Adrenal adenoma Code(s): D35.00 - BENIGN NEOPLASM OF UNSPECIFIED ADRENAL GLAND (3) Bradycardia on ECG Code(s): R00.1 - BRADYCARDIA, UNSPECIFIED (4) Bronchial asthma Code(s): J45.909 - UNSPECIFIED ASTHMA, UNCOMPLICATED (5) Diabetes Code(s): E11.9 - TYPE 2 DIABETES MELLITUS WITHOUT COMPLICATIONS (6) [place] cardiac risk >20% in next 10 years Code(s): Z91.89 - OTH PERSONAL RISK FACTORS, NOT ELSEWHERE CLASSIFIED (7) Gout Code(s): M10.9 - GOUT, UNSPECIFIED (8) Has smoked cigarettes within prior year Code(s): Z87.891 - PERSONAL HISTORY OF NICOTINE DEPENDENCE (9) Hypokalemia Code(s): E87.6 - HYPOKALEMIA (10) NSAID long-term use Code(s): Z79.1 - BIOINFORMATICS SCIENTIST (CURRENT) USE OF NON-STEROIDAL NON-INFLAM (NSAID) (11) Obesity Code(s): E66.9 - OBESITY, UNSPECIFIED (12) Sedentary lifestyle Code(s): Z91.89 - OTH PERSONAL RISK FACTORS, NOT ELSEWHERE CLASSIFIED (13) Sleep apnea Code(s): G47.30 - SLEEP APNEA, UNSPECIFIED (14) Uncontrolled hypertension Code(s): I10 - ESSENTIAL (PRIMARY) HYPERTENSION Assessment/Plan ligheadness atypical CP CAD s/p PCI LAD 09/02/2017 HTN DM2 not on meds Obesity Hyperlipidemia Adrenal adenoma Unstable angina 08/2017 NST positive ischemia lateral Plan r/o mi serial ce and ekg cont dapt BB statins may need risk stratification with mibi st if r/o mi negative
[2018-02-28] MEDS ORDERED: NITROGLYCERIN SUBLINGUAL 1/150 0.4 MG TAB SL PRN (19:12)
[2018-02-28] MEDS ORDERED: ACETAMINOPHEN 650 MG/20.3 ML ORAL SOLUTION (CUPS) PO ONE (19:16)
[2018-02-28] MEDS ORDERED: ACETAMINOPHEN 325 MG TABLET (FP) ONE (21:20)
[2018-02-28] MEDS ORDERED: POTASSIUM CHLORIDE TABS 20 MEQ TABLET.ER (FP) PO ONE ×3 (21:50→23:24)
--- NOTE | 2018-02-28 21:52 | HP ---
Admitting History and Physical - Admission Chief Complaint: left sided chest pain - with lightheadedness. CP resolved with SL NTG X1 - but lightheadedness persisted " not feeling well". "Have been having CP on and off over last few days" associated with "cold sweat" but "mild sweating ..." History of Present Illness: The patient is a 63 year old male with a significant PMH of gout, HTN, sleep apnea, obesity, DM2, CAD s/p PCI with LAD stent 09/14- known to have unstable angina ? remaining CAD lesion which was not stented -( per patient ) who presents to the emergency department with lightheadedness and chest pressure since 2AM this morning. The patient describes the chest pressure as a 'pinching needle sensation' localized on the left side of the chest, non-radiating, with a 2/10 in severity, associated with "mild cold sweating" -- "which has happened with other episodes of CP". The patient states he took nitro after the onset of these symptoms with relief of chest pressure but not from the lightheadedness and overall malaise. He reports has been having these episodes of Chest pressure on and off over last few days - not associated with activity / + mild diaphoresis / non radiating / no SOB / no Nausea / no vomiting. The patients BP is 150/97 in the ER. / Chest pain has resolved. Social history: Quit smoking 1 year ago. No reported drug or alcohol use. New Home Sales Consultant: Dr. Browning History Source: Patient, Medical Record Limitations to Obtaining History: No Limitations - Past Medical History Cardiovascular: Yes: Aortic Insufficiency, HTN, Murmur (hx aortic regurgitation) . No: AFIB, Aneurysm, Aortic Stenosis, CAD, CHF, Deep Vein Thrombosis, Hyperlipdemia, [place], Mitral Insufficiency, Mitral Stenosis, Pulmonary Hypertension , Other Pulmonary: Yes: Asthma Endocrine: Yes: Diabetes Mellitus - Past Surgical History Past Surgical History: Yes: None - Smoking History Smoking history: Former smoker (quit 1 yr ago) Have you smoked in the past 12 months: No Aproximately how many cigarettes per day: 1 If you are a former smoker, when did you quit?: 2016 - Alcohol/Substance Use Hx Alcohol Use: No History of Substance Use: reports: None - Social History Usual Living Arrangement: Yes: With Spouse ADL: Independent History of Recent Travel: No Home Medications - Allergies Allergies/Adverse Reactions: Allergies Allergy/AdvReac Type Severity Reaction Status Date / Time No Known Allergies Allergy Verified 02/28/18 11:26 - Home Medications Home Medications: Ambulatory Orders Allopurinol [Zyloprim -] 100 mg PO DAILY #30 tablet 03/11/15 Chlorthalidone 25 mg PO DAILY #30 tablet 03/11/15 Losartan Potassium 100 mg PO DAILY #30 tablet 03/11/15 Metoprolol Tartrate 100 mg PO BID #30 tablet 03/11/15 Amlodipine Besylate [Norvasc -] 10 mg PO DAILY 02/28/18 Aspirin 81 mg PO DAILY 02/28/18 Atorvastatin Ca [Lipitor] 80 mg PO HS 02/28/18 Clopidogrel Bisulfate [Plavix] 75 mg PO DAILY 02/28/18 Nitroglycerin Sublingual [Nitrostat -] 0.4 mg SL PRN PRN 02/28/18 Review of Systems - Review of Systems Constitutional: reports: Diaphoresis (asociated with chest pressure) Eyes: reports: No Symptoms HENT: reports: No Symptoms Neck: reports: No Symptoms Cardiovascular: reports: Chest Pain. denies: Edema, Palpitations, Shortness of Breath Respiratory: reports: Snoring, Other (sleep apnea). denies: SOB, Wheezing Gastrointestinal: reports: No Symptoms. denies: Nausea, Vomiting Genitourinary: reports: No Symptoms Breasts: reports: No Symptoms Reported Musculoskeletal: reports: No Symptoms Integumentary: reports: No Symptoms Neurological: reports: No Symptoms Endocrine: reports: No Symptoms Hematology/Lymphatic: reports: No Symptoms Psychiatric: reports: No Symptoms Physical Examination Vital Signs: Vital Signs Temperature 97.8 F 02/28/18 17:10 Pulse Rate 74 02/28/18 21:51 Respiratory Rate 21 02/28/18 21:51 Blood Pressure 129/79 02/28/18 21:51 O2 Sat by Pulse Oximetry (%) 97 02/28/18 21:51 Constitutional: Yes: Well Nourished, No Distress, Calm, Obese Eyes: Yes: Conjunctiva Clear, EOM Intact HENT: Yes: Atraumatic, Normocephalic Neck: Yes: Supple, Trachea Midline Cardiovascular: Yes: Regular Rate and Rhythm Respiratory: Yes: CTA Bilaterally Gastrointestinal: Yes: Normal Bowel Sounds, Abdomen, Obese ...Rectal Exam: Yes: Deferred Renal/: Yes: WNL Breast(s): Yes: WNL Musculoskeletal: Yes: WNL Extremities: Yes: WNL Edema: No Peripheral Pulses WNL: Yes Integumentary: Yes: WNL Neurological: Yes: WNL ...Motor Strength: WNL Psychiatric: Yes: Alert, Oriented Labs: CBC, BMP 02/28/18 13:06 02/28/18 13:45 Problem List - Problems (1) Angina at rest Code(s): I20.8 - OTHER FORMS OF ANGINA PECTORIS (2) Chest pain Code(s): R07.9 - CHEST PAIN, UNSPECIFIED Qualifiers: Chest pain type: unspecified Qualified Code(s): R07.9 - Chest pain, unspecified (3) CAD S/P percutaneous coronary angioplasty Code(s): I25.10 - ATHSCL HEART DISEASE OF [place] CORONARY ARTERY W/O ANG PCTRS; Z98.61 - CORONARY ANGIOPLASTY STATUS (4) Diabetes Code(s): E11.9 - TYPE 2 DIABETES MELLITUS WITHOUT COMPLICATIONS Qualifiers: Diabetes mellitus type: type 2 (5) Uncontrolled hypertension Code(s): I10 - ESSENTIAL (PRIMARY) HYPERTENSION (6) Sleep apnea Code(s): G47.30 - SLEEP APNEA, UNSPECIFIED (7) Obesity Code(s): E66.9 - OBESITY, UNSPECIFIED (8) Sedentary lifestyle Code(s): Z91.89 - [facility] PERSONAL RISK FACTORS, NOT ELSEWHERE CLASSIFIED (9) Gout Code(s): M10.9 - GOUT, UNSPECIFIED
[2018-02-28] MEDS ORDERED: ATORVASTATIN CA 80 MG TABLET (FP) PO SCH (22:00)
[2018-02-28] MEDS: METOPROLOL TARTRATE 50 MG TABLET (FP) PO SCH (23:10)
[2018-03-01 06:42] LABS: BASO % 0.7 % (0-2.0); EOS % 3.5 % (0-4.5); HEMATOCRIT 37.3 % (35.4-49); HEMOGLOBIN 12.4 GM/dL (11.7-16.9); LYMPH % 35.3 % (8-40); MCH 25.5 pg (25.7-33.7); MCHC 33.2 g/dl (32.0-35.9); MEAN CELL VOLUME 76.8 fl (80-96); MEAN PLT VOLUME 7.7 fl (7.5-11.1); MONO % 8.1 % (3.8-10.2); NEUT % 52.4 % (42.8-82.8); PLATELET COUNT 285 K/MM3 (134-434); RBC 4.86 M/mm3 (4.00-5.60); RDW 14.6 % (11.9-15.9); WHITE BLOOD COUNT 8.8 K/mm3 (4.0-10.0)
[2018-03-01 07:31] LABS: CHLORIDE 102 mmol/L (98-107); POTASSIUM 3.5 mmol/L (3.5-5.1); SODIUM 141 mmol/L (136-145)
[2018-03-01 07:46] LABS: ANION GAP 9 (8-16); BLOOD UREA NITROGEN 21 mg/dL (7-18); CALCIUM 8.6 mg/dL (8.5-10.1); CHOLESTEROL 94 mg/dL (50-200); CO2 30 mmol/L (21-32); CREATININE 1.2 mg/dL (0.7-1.3); GLUCOSE,RANDOM 96 mg/dL (74-106); HDL CHOLESTEROL 37 mg/dL (40-60); LDL CHOLESTEROL (ONLY SJRH) 49 mg/dL (5-100); TRIGLYCERIDES 119 mg/dL (35-160)
[2018-03-01] MEDS: METOPROLOL TARTRATE 50 MG TABLET (FP) PO SCH (09:36)
[2018-03-01] MEDS ORDERED: ASPIRIN 81 MG CHEWABLE TABLETS PO SCH (10:00)
[2018-03-01] MEDS ORDERED: CLOPIDOGREL BISULFATE 75 MG TABLET (FP) PO SCH (10:00)
[2018-03-01] MEDS ORDERED: CHLORTHALIDONE 25 MG TABLET PO SCH (10:00)
[2018-03-01] MEDS ORDERED: ALLOPURINOL 100 MG TABLET (FP) PO SCH (10:00)
[2018-03-01] MEDS ORDERED: amLODIPine BESYLATE 10 MG TABLET (FP) PO SCH (10:00)
[2018-03-01] MEDS ORDERED: LOSARTAN POTASSIUM 100 MG TABLET PO SCH (10:00)
--- NOTE | 2018-03-01 10:11 | EKG ---
Test Reason : Blood Pressure : / mmHG Vent. Rate : 061 BPM Atrial Rate : 061 BPM P-R Int : 172 ms QRS Dur : 086 ms QT Int : 422 ms P-R-T Axes : 058 029 005 degrees QTc Int : 424 ms NORMAL SINUS RHYTHM NONSPECIFIC T WAVE ABNORMALITY ABNORMAL ECG Confirmed by Tramaine Sue MD ([id number]) on 03/01/2018 10:10:54 AM Referred By: Confirmed By:Tramaine Sue MD
[2018-03-01] MEDS ORDERED: POTASSIUM CHLORIDE TABS 20 MEQ TABLET.ER (FP) PO ONE (10:15)
[2018-03-01] MEDS ORDERED: LOSARTAN POTASSIUM 50 MG TABLET (FP) PO SCH (11:00)
--- NOTE | 2018-03-01 11:41 | EKG ---
Test Reason : Blood Pressure : / mmHG Vent. Rate : 059 BPM Atrial Rate : 059 BPM P-R Int : 170 ms QRS Dur : 088 ms QT Int : 434 ms P-R-T Axes : 052 008 023 degrees QTc Int : 429 ms SINUS BRADYCARDIA NONSPECIFIC T WAVE ABNORMALITY ABNORMAL ECG WHEN COMPARED WITH ECG OF 28-FEB-2018 11:34, NO SIGNIFICANT CHANGE WAS FOUND Confirmed by Tramaine Sue MD ([id number]) on 03/01/2018 11:41:12 AM Referred By: Alireza LEE Confirmed By:Tramaine Sue MD
--- NOTE | 2018-03-01 15:22 | PN ---
Progress Note, Physician Chief Complaint: Pt A&Ox3; asymptomatic. History of Present Illness: The patient is a 63 year old black male (bob Gallegos) ith a significant PMH of CAD--> coronary stents x 2gout, HTN, sleep apnea, and diabetes who presents to the emergency department with lightheadedness and chest pressure since 2AM this morning. The patient describes the chest pressure as a 'pinching needle sensation' localized on the left side of the chest, non-radiating, with a 2/10 in severity. The patient states he took nitro after the onset of these symptoms. The patient has an extensive cardiac history and was told by materials management clerk that he has a blockage that could not be stented after cath in September. The patients BP is 150/97 in the ER. The patient denies shortness of breath, and headache. Denies fever, chills, nausea, vomit, diarrhea and constipation. Denies dysuria, frequency, urgency and hematuria. Allergies: NKA Past surgical history: s/p 2 stents placed. Social history: Quit smoking 1 year ago. No reported drug or alcohol use. 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 Browning [phone] - Current Medication List Current Medications: Active Medications Allopurinol (Zyloprim -) 100 mg PO DAILY [facility] Last Admin: 03/01/18 09:37 Dose: 100 mg Amlodipine Besylate (Norvasc -) 10 mg PO DAILY [facility] Last Admin: 03/01/18 09:37 Dose: 10 mg Aspirin (Asa -) 81 mg PO DAILY [facility] Last Admin: 03/01/18 09:37 Dose: 81 mg Atorvastatin Calcium (Lipitor -) 80 mg PO HS [facility] Last Admin: 02/28/18 23:10 Dose: 80 mg Chlorthalidone (Hygroton -) 25 mg PO DAILY [facility] Last Admin: 03/01/18 11:27 Dose: 25 mg Clopidogrel Bisulfate (Plavix -) 75 mg PO DAILY [facility] Last Admin: 03/01/18 09:37 Dose: 75 mg Losartan Potassium (Cozaar -) 100 mg PO DAILY [facility] Last Admin: 03/01/18 11:27 Dose: 100 mg Metoprolol Tartrate (Lopressor -) 100 mg PO BID [facility] Last Admin: 03/01/18 09:36 Dose: 100 mg Nitroglycerin (Nitrostat -) 0.4 mg SL PRN PRN PRN Reason: chest pain - Objective Vital Signs: Vital Signs Temperature 98 F 03/01/18 08:04 Pulse Rate 60 03/01/18 08:04 Respiratory Rate 18 03/01/18 08:04 Blood Pressure 119/83 03/01/18 08:04 O2 Sat by Pulse Oximetry (%) 95 03/01/18 08:00 Labs: CBC, BMP 03/01/18 06:25 03/01/18 06:25 Problem List - Problems (1) CAD S/P percutaneous coronary angioplasty Assessment/Plan: TNI < 0.02 x 2. EKG: sinus bradycardia; nonspecific T wave changes. Cholesterol: 94 mg/dL. Plan: From a cardiac standpoint, pt may be followed as outpatient. He agrees to start cardiac rehabilitation. As discussed today with Dr. Zheng, he will be followed for possible f/u coronary angiogram to asess stents and r/o progression of other lesion. Code(s): I25.10 - ATHSCL HEART DISEASE OF [place] CORONARY ARTERY W/O ANG PCTRS; Z98.61 - CORONARY ANGIOPLASTY STATUS (2) Bronchial asthma Code(s): J45.909 - UNSPECIFIED ASTHMA, UNCOMPLICATED (3) Diabetes Code(s): E11.9 - TYPE 2 DIABETES MELLITUS WITHOUT COMPLICATIONS Qualifiers: Diabetes mellitus type: type 2 (4) [place] cardiac risk >20% in next 10 years Code(s): Z91.89 - OTH PERSONAL RISK FACTORS, NOT ELSEWHERE CLASSIFIED (5) Gout Code(s): M10.9 - GOUT, UNSPECIFIED (6) Has smoked cigarettes within prior year Code(s): Z87.891 - PERSONAL HISTORY OF NICOTINE DEPENDENCE (7) Obesity Code(s): E66.9 - OBESITY, UNSPECIFIED (8) Sedentary lifestyle Code(s): Z91.89 - OTH PERSONAL RISK FACTORS, NOT ELSEWHERE CLASSIFIED (9) Sleep apnea Code(s): G47.30 - SLEEP APNEA, UNSPECIFIED (10) Uncontrolled hypertension Code(s): I10 - ESSENTIAL (PRIMARY) HYPERTENSION
--- NOTE | 2018-03-01 16:40 | PN ---
Progress Note (short form) - Note Progress Note: seen and examined this am in attendance all labs reviewed with both reports no CP /SOB/ ambulating in hallway without sx Vital Signs Period Temp Pulse Resp BP Sys/[place] Pulse Ox Last 24 Hr 97.1 F-98.3 F 57-74 18-21 112-138/68-84 95-100 neck suppl e heart S1/S2 lungs clear abd obese ext noedema CBC,CMP WBC 8.8 K/mm3 (4.0-10.0) 03/01/18 06:25 RBC 4.86 M/mm3 (4.00-5.60) 03/01/18 06:25 Hgb 12.4 GM/dL (11.7-16.9) 03/01/18 06:25 Hct 37.3 % (35.4-49) 03/01/18 06:25 MCV 76.8 fl (80-96) L 03/01/18 06:25 MCH 25.5 pg (25.7-33.7) L 03/01/18 06:25 MCHC 33.2 g/dl (32.0-35.9) 03/01/18 06:25 RDW 14.6 % (11.9-15.9) 03/01/18 06:25 Plt Count 285 K/MM3 (134-434) 03/01/18 06:25 MPV 7.7 fl (7.5-11.1) 03/01/18 06:25 Neutrophils % 52.4 % (42.8-82.8) 03/01/18 06:25 Lymphocytes % 35.3 % (8-40) D 03/01/18 06:25 Monocytes % 8.1 % (3.8-10.2) 03/01/18 06:25 Eosinophils % 3.5 % (0-4.5) D 03/01/18 06:25 Basophils % 0.7 % (0-2.0) 03/01/18 06:25 Sodium 141 mmol/L (136-145) 03/01/18 06:25 Potassium 3.5 mmol/L (3.5-5.1) 03/01/18 06:25 Chloride 102 mmol/L (98-107) 03/01/18 06:25 Carbon Dioxide 30 mmol/L (21-32) 03/01/18 06:25 Anion Gap 9 (8-16) 03/01/18 06:25 BUN 21 mg/dL (7-18) H 03/01/18 06:25 Creatinine 1.2 mg/dL (0.7-1.3) 03/01/18 06:25 Creat Clearance w eGFR 55.40 (>60) 02/28/18 13:45 Random Glucose 96 mg/dL (74-106) 03/01/18 06:25 Calcium 8.6 mg/dL (8.5-10.1) 03/01/18 06:25 Magnesium 2.0 mg/dL (1.8-2.4) 03/01/18 06:25 Total Bilirubin 0.7 mg/dL (0.2-1.0) 02/28/18 13:45 AST 30 U/L (15-37) 02/28/18 13:45 ALT 41 U/L (12-78) 02/28/18 13:45 Alkaline Phosphatase 94 U/L (45-117) D 02/28/18 13:45 Creatine Kinase 215 IU/L (39-308) 03/01/18 06:25 Creatine Kinase Index 0.5 % (0.0-5.0) 03/01/18 06:25 CK-MB (CK-2) 1.144 ng/mL (0.5-3.6) 03/01/18 06:25 Troponin I < 0.02 ng/ml (0.00-0.05) 03/01/18 06:25 Total Protein 7.7 g/dl (6.4-8.2) 02/28/18 13:45 Albumin 4.0 g/dl (3.4-5.0) 02/28/18 13:45 Triglycerides 119 mg/dL (35-160) D 03/01/18 06:25 Cholesterol 94 mg/dL (50-200) D 03/01/18 06:25 Total LDL Cholesterol 49 mg/dL (5-100) D 03/01/18 06:25 HDL Cholesterol 37 mg/dL (40-60) L 03/01/18 06:25 Troponin, BNP 03/01/18 06:25 Troponin I < 0.02 Active Medications Allopurinol (Zyloprim -) 100 mg PO DAILY [facility] Last Admin: 03/01/18 09:37 Dose: 100 mg Amlodipine Besylate (Norvasc -) 10 mg PO DAILY [facility] Last Admin: 03/01/18 09:37 Dose: 10 mg Aspirin (Asa -) 81 mg PO DAILY [facility] Last Admin: 03/01/18 09:37 Dose: 81 mg Atorvastatin Calcium (Lipitor -) 80 mg PO HS [facility] Last Admin: 02/28/18 23:10 Dose: 80 mg Chlorthalidone (Hygroton -) 25 mg PO DAILY [facility] Last Admin: 03/01/18 11:27 Dose: 25 mg Clopidogrel Bisulfate (Plavix -) 75 mg PO DAILY [facility] Last Admin: 03/01/18 09:37 Dose: 75 mg Losartan Potassium (Cozaar -) 100 mg PO DAILY [facility] Last Admin: 03/01/18 11:27 Dose: 100 mg Metoprolol Tartrate (Lopressor -) 100 mg PO BID [facility] Last Admin: 03/01/18 09:36 Dose: 100 mg Nitroglycerin (Nitrostat -) 0.4 mg SL PRN PRN PRN Reason: chest pain # atypical chest pain work -up at present neg for cardiac event will discuss with Crdio need for further intervention / change in managemnt?? If agreable will d/c home today with close follow up Problem List - Problems (1) Angina at rest Code(s): I20.8 - OTHER FORMS OF ANGINA PECTORIS (2) Chest pain Code(s): R07.9 - CHEST PAIN, UNSPECIFIED Qualifiers: Chest pain type: unspecified Qualified Code(s): R07.9 - Chest pain, unspecified (3) CAD S/P percutaneous coronary angioplasty Code(s): I25.10 - ATHSCL HEART DISEASE OF [place] CORONARY ARTERY W/O ANG PCTRS; Z98.61 - CORONARY ANGIOPLASTY STATUS (4) Diabetes Code(s): E11.9 - TYPE 2 DIABETES MELLITUS WITHOUT COMPLICATIONS Qualifiers: Diabetes mellitus type: type 2 (5) Uncontrolled hypertension Code(s): I10 - ESSENTIAL (PRIMARY) HYPERTENSION (6) Sleep apnea Code(s): G47.30 - SLEEP APNEA, UNSPECIFIED (7) Obesity Code(s): E66.9 - OBESITY, UNSPECIFIED (8) Sedentary lifestyle Code(s): Z91.89 - OTH PERSONAL RISK FACTORS, NOT ELSEWHERE CLASSIFIED (9) Gout Code(s): M10.9 - GOUT, UNSPECIFIED
[2018-03-01 19:03] VITALS: BP 116/83; PULSE 62; TEMP 98.2
== END 2018-03-01 18:14 | disposition home or self-care (01) ==
LOC: JER 11:23 → JERBED 15:40 → J4W 22:31
PROVIDERS: ADMIT Family Medicine; ATTEND Family Medicine
DX: R07.9 Chest pain, unspecified (principal); I10 Essential (primary) hypertension; I20.0 Unstable angina; I35.1 Nonrheumatic aortic (valve) insufficiency; I25.10 Atherosclerotic heart disease of native coronary artery without angina pectoris; R00.1 Bradycardia, unspecified; R01.1 Cardiac murmur, unspecified; E11.9 Type 2 diabetes mellitus without complications; E78.5 Hyperlipidemia, unspecified; E66.9 Obesity, unspecified; E87.6 Hypokalemia; D35.00 Benign neoplasm of unspecified adrenal gland; G47.30 Sleep apnea, unspecified; M10.9 Gout, unspecified; J45.909 Unspecified asthma, uncomplicated; Z95.5 Presence of coronary angioplasty implant and graft; Z87.891 Personal history of nicotine dependence; Z79.82 Long term (current) use of aspirin; Z68.36 Body mass index [BMI] 36.0-36.9, adult; Z91.89 Other specified personal risk factors, not elsewhere classified; Z79.1 Long term (current) use of non-steroidal anti-inflammatories (NSAID); Z98.61 Coronary angioplasty status
CPT/HCPCS: 36415; 71045-TC-FY; 80048; 80053; 80061; 82550; 82553; 83721; 83735; 84484; 85025; 93005; 93010; 99285-25; G0378